=== PATIENT | male | born 1950 | race Caucasian/White ===

== ENCOUNTER → 2020-05-21 16:45 | Outpatient (CLI) | payer MEDICARE, OTHER, SELFPAY ==
--- NOTE | 2020-05-21 16:48 | CT_ITS ---
STUDY: CT CHEST WITH CONTRAST REASON FOR EXAM: Male, 70 years old. RT LUNG MASS, PT HAS EXTREME KYPHOSIS RADIATION DOSAGE (If Supplied By Facility): CTDIvol = ( 18.95 ) mGy, DLP = ( 823.27 ) mGycm TECHNIQUE: Transaxial imaging was performed following intravenous administration of IV 100mL Isovue-370. Individualized dose optimization techniques were used for this CT. COMPARISON: None. FINDINGS: Lung windows show mildly hyperexpanded lungs in the extremely kyphotic patient. There is no organized infiltrate, or suspicious groundglass opacifications. No suspicious noncalcified mass or nodule. The soft tissue windows show normal-appearing thyroid gland. No suspicious axillary, mediastinal, or perihilar mass or adenopathy. The thoracic aorta is ectatic but free of aneurysm or dissection. There are calcified coronary vessels. Limited cuts through the upper abdomen show bilateral simple renal cysts, retained stool. Bony structures show degenerative change with an extreme kyphosis in the thoracic spine and surgical hardware in the lumbar spine and free of complication CT/Chest WITH Contrast IMPRESSION: No acute pulmonary process, no suspicious noncalcified mass or nodule No pleural or pericardial effusions, no suspicious adenopathy Calcified coronary vessels Electronically Signed: Antolin Porras MD at 8:01 EDT , Service support ,
== END ==
PROVIDERS: PCP Family Medicine Geriatric Medicine; Referring Provider Family Medicine Geriatric Medicine; Visit Provider Family Medicine Geriatric Medicine
DX: R91.8 Other nonspecific abnormal finding of lung field (principal)
CPT/HCPCS: 71260; Q9967